=== PATIENT | male | born 1950 | race Caucasian/White ===

== ENCOUNTER 2023-09-19 13:15 | Outpatient (CLI) | payer MEDICARE, SELFPAY ==
--- NOTE | ~2023-09-19 | XR_ITS ---
EXAMINATION: XR lg joint inject/asp w image DATE: 09/19/2023 14:11 INDICATION: Right shoulder adhesive capsulitis TECHNIQUE: A time-out was performed to verify the patient's name, date of , and procedure to b e performed. The procedure including the risks, benefits, and alternatives was discussed with the pat ient. Risks discussed included bleeding and infection. The patient understood the risks and agreed to proceed. The skin overlying the rotator cuff interval of the right glenohumeral joint was prepped a nd draped in usual sterile fashion. Anesthetic was administered with 1% lidocaine subcutaneously. A 22 G needle was advanced under fluoroscopic guidance into the joint. Injection of 1 mL of Omnipaque 240 confirmed intra-articular position of the needle. Subsequently, injectate consisting of 5 mm a 4:1 mixture of 1% lidocaine: 80 mg/mL Depo-Medrol for a total dosage of 80 mg Depo-Medrol was instill ed. Washout of contrast was seen confirming intra-articular administration. The needle was removed an d the entry site was cleaned and dressed. There were no immediate complications. Fluoroscopy exposur e time was 0.1 minutes. The total number of images was 2. Total DAP was 0.376 Gycm^2 FINDINGS: Real-time fluoroscopy demonstrates the needle in the right glenohumeral joint. Patient's pa in prior to procedure:10/14. Patient's pain following the procedure: 05/17. IMPRESSION: 1. Successful right glenohumeral joint injection of local anesthetic and steroid with decrease in the patient's presenting pain. Reviewed, dictated and finalized at location A. IMPRESSION: 1. Successful right glenohumeral joint injection of local anesthetic and steroi d with decrease in the patient's presenting pain.
== END 2023-09-19 13:16 | disposition home or self-care (01) ==
PROVIDERS: PCP Family Medicine; Visit Provider Physician Assistant Surgical
DX: M75.01 Adhesive capsulitis of right shoulder (principal)
CPT/HCPCS: 20610; 77002; J1010; Q9966

== ENCOUNTER 2023-10-30 10:30 | Outpatient (RCR) | payer MEDICARE, SELFPAY ==
[2023-09-25 09:00] VITALS: BP_SYST 135
--- NOTE | 2023-09-25 09:54 | OPREHPOC ---
Outpatient Therapy Plan of Care This is a Multidisciplinary Plan of Care that may contain components documented by all disciplines (PT, OT, and ST.) PT Problem 1 PT Problem #1 Knowledge Deficit PT Goal 1 Goal *indep with HEP * good shoulder position with exercises Target Visit 8 PT Problem 2 PT Problem #2 Pain PT Goal 1 Goal 1* pt report pain rating at worst of 2/10 with increased activity Target Visit 8 PT Problem 3 PT Problem #3 Impaired Strength PT Goal 1 Goal increase strength of R shoulder, to increase use of R arm for yard work: in standing x 5 reps: 1* flexion to 140' with 3# hand wt 2* abduction to 130' with 2# hand wt 3* IR- reach behind back, palm to above waist Target Visit 8
--- NOTE | 2023-09-25 09:54 | PTOPEVAL1 ---
Assessment and note entered by Harleen Morales, PT Evaluation Information Assessment Status Evaluation Diagnosis R shoulder adhesive capsulitis Onset Feb 2023 Subjective Information last fall, doing yard work, both shoulders were aching and R continued to bother him and could not raise his arm up; x rays of shoulder; had injection last week, pain is less- shoulder is 75% better; is R hand dominant; Activity: is active, retired, does yard work; due to R shoulder pain--using L arm more to do things and not reaching overhead Reported Pain Level Pain Score Self Report Additional Pain Score Comments pain range in past few days: 0- 3/10; area of pain anterior shoulder-ache, throb; pain increase: overhead reaching, use arm pain decrease: rest, over the counter med PRN ~2-3x/wk have not been using heat or ice-- instruct on PRN use, 10-15 min; injection last week helped decrease the pain; with sleeping- can lie on R shoulder; Assessment PT Clinical Summary Jeremy has the diagnosis of R shoulder pain/ adhesive capsulitis. He received an injection and pain has decreased. His history includes cervical fusion and low back pain. He is R hand dominant, active and indep with all home and self care activities. Quick DASH self assessment is 7% limitation in activity. He reports decreased use of R arm and issues lifting overhead. With the evaluation: active R shoulder ROM: flexion 110' and abduction 105'- both increase shoulder pain; tenderness over anterior GH joint. And poor standing position of shoulder and trunk. Skilled PT services for modalities to decrease pain, therapeutic exercises to increase shoulder ROM and strength, with education for posture and HEP. Plan of Care Interventions Electrical Stimulation,Hot Pack/Cold Pack,Manual Therapy,Neuro Re-education,Patient Education,Therapeutic Activities,Therapeutic Exercise,Ultrasound,Other Other Interventions taping IASTM
--- NOTE | 2023-10-30 10:54 | PTOPDC ---
Assessment and note entered by Harleen Morales, PT Discharge Report Assessment Status Discharge Diagnosis R shoulder adhesive capsulitis Onset Feb 2023 Subjective Information doing good; have been doing the exercises on both shoulders; doing everything at home now-- washing the car, doing yard work; Reported Pain Level Pain Score 0: Self Report Assessment PT Clinical Summary Jeremy has received 6 PT sessions. Compared to the initial evaluation: he has decreased pain to NO pain in shoulder; increase ROM and strength of R shoulder/UE, with return to all of his usual home tasks and activities. Education completed for HEP and posture. The goals were achieved, except flexion ROM. Discharge PT services. He is to continue with his HEP. Plan of Care PT Services Indicated No
== END 2023-10-30 12:49 | disposition home or self-care (01) ==
LOC: ANHPT 10:30
PROVIDERS: PCP Family Medicine; Visit Provider Physician Assistant Surgical
DX: M75.01 Adhesive capsulitis of right shoulder (principal)
CPT/HCPCS: 97014; 97110; 97140; 97161; 97530; G0283

== ENCOUNTER 2024-02-13 08:25 | Outpatient (CLI) | payer MEDICARE, SELFPAY ==
--- NOTE | ~2024-02-13 | XR_ITS ---
EXAMINATION: XR lg joint inject/asp w image DATE: 02/13/2024 09:20 INDICATION: Adhesive capsulitis of right shoulder. TECHNIQUE: A time-out was performed to verify the patient's name, date of , and procedure to b e performed. The procedure including the risks, benefits, and alternatives was discussed with the pat ient. Risks discussed included bleeding and infection. The patient understood the risks and agreed to proceed. The skin overlying the right glenohumeral joint was prepped and draped in usual sterile fa shion. Anesthetic was administered with 1% lidocaine subcutaneously. A 22 G needle was advanced und er fluoroscopic guidance into the joint. Subsequently, injectate consisting of 4 mL 1% lidocaine and 1 mL 80 mg/mL Depo-Medrol was instilled. The needle was removed and the entry site was cleaned and dressed. There were no immediate complications. Fluoroscopy exposure time was 0.0 minutes. The total number of images was 1. FINDINGS: Real-time fluoroscopy demonstrates the needle in the right glenohumeral joint. Patient's pa in prior to procedure:11/14. Patient's pain following the procedure: 07/15. IMPRESSION: 1. Fluoroscopy guided right glenohumeral joint injection of local anesthetic and steroid with decreas e in the patient's presenting pain. Reviewed, dictated and finalized at location A. [employer] WORKER IMPRESSION: 1. Fluoroscopy guided right glenohumeral joint injection of local anesthetic an d steroid with decrease in the patient's presenting pain.
== END 2024-02-13 08:26 | disposition home or self-care (01) ==
LOC: ANHIMG 08:30
PROVIDERS: PCP Nurse Practitioner Family; Visit Provider Physician Assistant Surgical
DX: M75.01 Adhesive capsulitis of right shoulder (principal)
CPT/HCPCS: 20610; 77002; J1010; J2003